=== PATIENT | male | born 1955 | race Asian ===

== ENCOUNTER 2024-11-04 10:24 | Emergency (ER) | payer OTHER ==
[~2024-11-04] VITALS: Ht 177.8 cm; Wt 88.6 kg
[2024-11-04 10:33] VITALS: BP 161/58; PULSE 58; RESP 18; TEMP 98.2; O2SAT 99
[2024-11-04] MEDS ORDERED: VIBE75TA PO (10:47)
[2024-11-04] MEDS ORDERED: EMPA10TA3 PO (10:47)
[2024-11-04] MEDS ORDERED: ALIR75PE5 SQ (10:47)
[2024-11-04] MEDS ORDERED: BUPR-49 PO (10:47)
[2024-11-04] MEDS ORDERED: PRAS10TA10 PO (10:47)
[2024-11-04] MEDS ORDERED: FAMO40TA7 PO (10:47)
[2024-11-04] MEDS ORDERED: AMLO2.5T29 PO (10:47)
[2024-11-04] MEDS ORDERED: LOSA-381 PO (10:47)
[2024-11-04] MEDS ORDERED: DESV50TA35 PO (10:47)
[2024-11-04] MEDS ORDERED: PANT20TA18 PO (10:47)
[2024-11-04] MEDS ORDERED: LATA2.5D14 OU (10:47)
[2024-11-04] MEDS ORDERED: RANO500T27 PO (10:47)
[2024-11-04] MEDS ORDERED: ASPI-1444 PO (10:47)
[2024-11-04] MEDS ORDERED: FURO20TA4 PO (10:47)
[2024-11-04] MEDS ORDERED: ISOS30TA92 PO (10:47)
[2024-11-04] MEDS: ACETAMINOPHEN 500 MG TABLET PO ONE (14:21)
[2024-11-04] MEDS ORDERED: ACET-3385 PO (16:31)
== END 2024-11-04 16:56 | disposition home or self-care (01) ==
LOC: EMS 10:35
DX: S62.232A Other displaced fracture of base of first metacarpal bone, left hand, initial encounter for closed fracture (principal); S00.81XA Abrasion of other part of head, initial encounter; M25.551 Pain in right hip; M25.561 Pain in right knee; M54.2 Cervicalgia; F32.A Depression, unspecified; I10 Essential (primary) hypertension; Z79.82 Long term (current) use of aspirin; Z79.02 Long term (current) use of antithrombotics/antiplatelets; Z79.899 Other long term (current) drug therapy; W01.0XXA Fall on same level from slipping, tripping and stumbling without subsequent striking against object, initial encounter; Y93.89 Activity, other specified; Y92.89 Other specified places as the place of occurrence of the external cause; Y99.0 Civilian activity done for income or pay
CPT/HCPCS: 70450; 72125; 72170; 99284